=== PATIENT | male | born 1990 | race Caucasian/White ===

== ENCOUNTER 2017-03-03 16:13 | Emergency (ER) | payer OTHER ==
[~2017-03-03 16:13] MED LIST: Iopamidol 370 76% 100 ML VIAL ONE; Sodium Chloride 0.9% 1,000 ML BAG ONE
[2017-03-03] MEDS ORDERED: Ketorolac Tromethamine 30 MG/ML VIAL ONE (16:30)
[2017-03-03] MEDS ORDERED: Ondansetron HCl/PF 4 MG/2 ML Vial ONE (16:30)
[2017-03-03] MEDS ORDERED: Morphine Sulfate 2 MG/ML SYRINGE ONE ×2 (17:12→19:45)
--- NOTE | 2017-03-03 17:22 | RAD ---
AP VIEW CHEST 03/03/17 HISTORY: Abdominal pain. AP view chest is obtained. The lungs are well aerated. No evidence of active intrathoracic disease seen. No evidence of effusio ns, pneumonia or pneumothorax seen. IMPRESSION: Unremarkable AP view chest. POS: [facility]
[2017-03-03 17:32] LABS: White Blood Cell (WBC) Count 22.7 thou/uL (4.8-10.8)
[2017-03-03 17:33] LABS: Mean Corpuscular Hemoglobin 30.4 pg (27.0-31.0); Mean Corpuscular Volume 91.5 fL (80.0-94.0); Red Blood Cell (RBC) Count 6.62 mill/uL (4.70-6.10)
[2017-03-03 17:34] LABS: #Basophils 0.2 thou/uL (0.0-0.2); #Eosinphils 0.1 thou/uL (0.0-0.7); #Lymphocytes 1.6 thou/uL (1.20-3.40); #Monocytes 1.5 thou/uL (0.11-0.59); #Neutrophils 19.4 thou/uL (1.40-6.50); %Basophils 0.7 % (0.0-1.0); %Eosinophils 0.4 % (0.0-10.0); %Monocytes 6.7 % (0.0-10.0); %Neutrophils 85.2 % (42.0-75.0); ALT (SGPT) 56 U/L (8-55); AST (SGOT) 30 U/L (5-34); Albumin 4.6 g/dL (3.5-5.0); Alkaline Phosphatase 85 U/L (40-150); Anion Gap 14 mmol/L (10-20); BUN (Urea Nitrogen) 8 mg/dL (8.9-20.6); Bilirubin, Total 0.7 mg/dL (0.2-1.2); CK (CPK) 108 U/L (30-200); Calc. Creatinine Clearance 0 mL/min (70-130); Calcium 9.9 mg/dL (7.8-10.44); Carbon Dioxide 24 mmol/L (22-29); Chloride 105 mmol/L (98-107); Estimated GFR-MDRD 75; Globulin 3.3 g/dL (2.4-3.5); Glucose 95 mg/dL (70-105); Lipase 33 U/L (8-78); Mean Corpuscular HGB CONC 33.2 g/dL (32.0-36.0); Mean Platelet Volume 10.5 fL (7.4-10.4); Platelet Count 355 thou/uL (130-400); Potassium 4.7 mmol/L (3.5-5.1); Protein, Total 7.9 g/dL (6.0-8.3); Sodium 138 mmol/L (136-145)
[2017-03-03 17:37] LABS: Hemoglobin 20.1 g/dL (14.0-18.0)
--- NOTE | 2017-03-03 19:13 | CT ---
CONTRAST ENHANCED CT IMAGES ABDOMEN AND PELVIS 03/03/17 HISTORY: Diffuse abdominal pain, worse in the right lower region. Contrast enhanced CT images of the abdomen and pelvis obtained after administration of IV and oral c ontrast. The lung bases are unremarkable. No evidence of free intraperitoneal air seen. The liver, spleen, ga llbladder, pancreas, adrenal glands and kidneys are unremarkable. There is a focal area of small bow el seen on image #43 with a bullseye appearance. This is also seen on the coronal images. This may r epresent a focal area of small bowel intussusception. Contrast in the bowel is seen proximal to this area. The small bowel loops are also mildly dilated proximal to this. More distally, the small pa l loops are of normal caliber. There does appear to be some mesenteric lymph node enlargement also s een. The colon is not significantly distended or thickened. IMPRESSION: 1. Mesenteric lymph node enlargement concerning for mesenteric adenitis. 2. There is a focal area of small bowel which may have an intussusception seen on image #43 axi ally and images 46, 47 and 48 on the coronal reconstructed images. POS: [facility]
[2017-03-03] MEDS ORDERED: diphenhydrAMINE HCl 25 MG CAP ONE (19:45)
[2017-03-03] MEDS ORDERED: Promethazine HCl 25 MG/ML VIAL ONE (19:54)
== END 2017-03-03 20:20 | disposition short-term general hospital (02) ==
LOC: MADERS 16:13
DX: I88.0 Nonspecific mesenteric lymphadenitis (principal); K56.1 Intussusception; F41.9 Anxiety disorder, unspecified; Z87.891 Personal history of nicotine dependence; Z79.899 Other long term (current) drug therapy
CPT/HCPCS: 36415; 71010; 74177; 80053; 82150; 82550; 83690; 85025; 96361; 96374; 96375; 96376; J1885; J2270; J2405; J2550; J7050

== ENCOUNTER 2018-01-18 13:30 | Emergency (ER) | payer OTHER ==
[2018-01-18 14:09] LABS: #Basophils 0.2 thou/uL (0.0-0.2); #Eosinphils 0.1 thou/uL (0.0-0.7); #Lymphocytes 1.4 thou/uL (1.20-3.40); #Monocytes 1.2 thou/uL (0.11-0.59); #Neutrophils 8.1 thou/uL (1.40-6.50); %Basophils 1.7 % (0.0-1.0); %Eosinophils 1.3 % (0.0-10.0); %Lymphocytes 12.5 % (21.0-51.0); %Monocytes 10.9 % (0.0-10.0); %Neutrophils 73.6 % (42.0-75.0); Hemoglobin 18.1 g/dL (14.0-18.0); Mean Corpuscular HGB CONC 34.1 g/dL (32.0-36.0); Mean Corpuscular Hemoglobin 30.6 pg (27.0-31.0); Mean Corpuscular Volume 89.6 fl (80.0-94.0); Mean Platelet Volume 9.8 fL (7.4-10.4); Platelet Count 262 thou/uL (130-400); RBC Distribution Width 12.3 % (11.5-14.5); Red Blood Cell (RBC) Count 5.91 mill/uL (4.70-6.10)
[2018-01-18] MEDS ORDERED: MORPHINE 10 MG/ML SYRINGE ONE (14:09)
[2018-01-18] MEDS ORDERED: Ondansetron HCl/PF 4 MG/2 ML Vial ONE (14:09)
[2018-01-18 14:23] LABS: ALT (SGPT) 85 U/L (8-55); AST (SGOT) 24 U/L (5-34); Alkaline Phosphatase 77 U/L (40-150); Anion Gap 14 mmol/L (10-20); BUN (Urea Nitrogen) 8 mg/dL (8.9-20.6); Bilirubin, Total 0.9 mg/dL (0.2-1.2); Calc. Creatinine Clearance 0 mL/min (70-130); Calcium 9.5 mg/dL (7.8-10.44); Carbon Dioxide 20 mmol/L (22-29); Chloride 108 mmol/L (98-107); Estimated GFR-MDRD 78; Globulin 3.1 g/dL (2.4-3.5); Glucose 103 mg/dL (70-105); Lipase 41 U/L (8-78); Potassium 4.4 mmol/L (3.5-5.1); Protein, Total 7.1 g/dL (6.0-8.3); Sodium 138 mmol/L (136-145)
[2018-01-18 14:39] LABS: Bilirubin Negative (Negative); Blood, Urine Trace (Negative); Clarity Clear (Clear); Glucose, Urine (Dipstick) Negative (Negative); Leukocyte Negative (Negative); Nitrite Negative (Negative); Protein, Urine (Dipstick) 100 mg/dL (Neg-Trace)
[2018-01-18 14:43] LABS: Bacteria/HPF None Seen HPF (None Seen); RBC/HPF None Seen HPF (0-3); Squamous Epithelial 0-3 HPF (0-3); WBC/HPF None Seen HPF (0-3)
[2018-01-18] MEDS ORDERED: Morphine 10 MG/ML VIAL ONE (15:03)
[2018-01-18] MEDS ORDERED: Lorazepam 2 MG/ML VIAL ONE (15:54)
--- NOTE | 2018-01-18 16:14 | CT ---
CT ABDOMEN AND PELVIS WITH IV AND ORAL CONTRAST: Date: 01/18/18 HISTORY: Abdominal pain. Intussusception. COMPARISON: 03/03/17. FINDINGS: Lung bases are clear. The liver, spleen, kidneys, adrenal glands, and pancreas have a normal CT appea andrea. Urinary bladder is unremarkable. Appendix is not inflamed. Reactive appearing lymph nodes in t he right lower quadrant are similar in appearance to the prior study. In region of transient small bowel intussusception in the left mid abdomen on the previous study, the bowel has a normal appearance. IMPRESSION: No significant abnormalities are demonstrated. POS: [facility]
== END 2018-01-18 16:50 | disposition home or self-care (01) ==
LOC: MADERS 13:30
DX: E87.2 Acidosis (principal); R94.5 Abnormal results of liver function studies; I88.0 Nonspecific mesenteric lymphadenitis; R80.9 Proteinuria, unspecified
CPT/HCPCS: 74177; 80053; 81003; 81015; 83605; 83690; 85025; 96361; 96374; 96375; 96376; J2060; J2270; J2405; J7050

== ENCOUNTER 2018-08-15 12:16 | Emergency (ER) | payer OTHER ==
[2018-08-15] MEDS ORDERED: Ondansetron PF 4 MG/2 ML Vial ONE (13:05)
[2018-08-15] MEDS ORDERED: Morphine 4 MG/ML VIAL ONE (13:05)
[2018-08-15 13:08] LABS: #Basophils 0.2 thou/uL (0.0-0.2); #Eosinphils 0.2 thou/uL (0.0-0.7); #Lymphocytes 1.9 thou/uL (1.20-3.40); #Monocytes 1.1 thou/uL (0.11-0.59); #Neutrophils 11.1 thou/uL (1.40-6.50); %Basophils 1.3 % (0.0-1.0); %Eosinophils 1.2 % (0.0-10.0); %Lymphocytes 12.9 % (21.0-51.0); %Monocytes 7.5 % (0.0-10.0); %Neutrophils 77.1 % (42.0-75.0); Hemoglobin 17.5 g/dL (14.0-18.0); Mean Corpuscular HGB CONC 31.9 g/dL (32.0-36.0); Mean Platelet Volume 9.5 fL (7.4-10.4); Platelet Count 323 thou/uL (130-400); RBC Distribution Width 12.9 % (11.5-14.5); Red Blood Cell (RBC) Count 5.85 mill/uL (4.70-6.10); White Blood Cell (WBC) Count 14.3 thou/uL (4.8-10.8)
[2018-08-15 13:27] LABS: ALT (SGPT) 46 U/L (8-55); AST (SGOT) 30 U/L (5-34); Albumin 4.1 g/dL (3.5-5.0); Alkaline Phosphatase 60 U/L (40-150); Anion Gap 13 mmol/L (10-20); BUN (Urea Nitrogen) 9 mg/dL (8.9-20.6); Bilirubin, Total 0.8 mg/dL (0.2-1.2); Calc. Creatinine Clearance 0 mL/min (70-130); Calcium 9.6 mg/dL (7.8-10.44); Carbon Dioxide 23 mmol/L (22-29); Chloride 104 mmol/L (98-107); Estimated GFR-MDRD 90; Globulin 2.9 g/dL (2.4-3.5); Glucose 91 mg/dL (70-105); Lipase 179 U/L (8-78); Potassium 4.8 mmol/L (3.5-5.1); Sodium 135 mmol/L (136-145)
[2018-08-15 13:51] LABS: Bilirubin Negative (Negative); Blood, Urine Trace (Negative); Glucose, Urine (Dipstick) Negative (Negative); Leukocyte Negative (Negative); Nitrite Negative (Negative); Protein, Urine (Dipstick) 100 mg/dL (Neg-Trace); Urobilinogen 0.2 mg/dL (0.2-1.0)
[2018-08-15 14:01] LABS: Clarity Hazy (Clear)
[2018-08-15 14:02] LABS: Bacteria/HPF Rare-Few HPF (None Seen); Squamous Epithelial 0-3 HPF (0-3); WBC/HPF 0-3 HPF (0-3)
--- NOTE | 2018-08-15 14:10 | CT ---
CT ABDOMEN AND PELVIS WITHOUT CONTRAST: Date: 08/15/18 Multiple axial tomograms obtained through the abdomen and pelvis without IV enhancement. INDICATION: Left flank pain. FINDINGS: Lung bases clear. Liver, spleen, and pancreas are unremarkable, given limitations of a noncontrast study. Adrenal glands appear normal. Kidneys are unremarkable. No evidence of hydronephrosis. There is no evidence of urinary tract calcul us or obstruction. The urinary bladder is mildly distended and appears unremarkable. Small bowel loops are normal caliber. The appendix appears normal. Aorta is normal caliber. Nonspecif ic periaortic lymph nodes. There are also numerous nonspecific mesenteric lymph nodes, several of whi ch in the right abdomen are mildly prominent. At least one mesenteric lymph node on the right measure s up to 1.5 cm. Numerous other mesenteric lymph nodes measure up to 1.0 cm. IMPRESSION: 1. No evidence of urinary tract calculus or obstruction. 2. Nonspecific retroperitoneal and mesenteric lymph nodes. Mesenteric adenitis is a consideration. POS: [facility]
[2018-08-15] MEDS ORDERED: Piperacillin/Tazobactam 4.5 GM VIAL ONE (14:15)
--- NOTE | 2018-08-15 14:26 | ULT ---
RIGHT UPPER QUADRANT ULTRASOUND: Date: 08/15/18 HISTORY: Pancreatitis, right upper quadrant pain. FINDINGS: The liver demonstrates homogeneous echotexture without focal mass or intrahepatic ductal dilatation. The pancreas is not visualized due to overlying bowel gas. No gallstones are seen. There is mild thic kening of the wall of the gallbladder measuring about 4.0 mm. The common duct measures 4.0 mm in diam eter. Right kidney is normal. No free fluid is seen in Morison's pouch. IMPRESSION: 1. No evidence of gallstones. 2. Nonspecific mild gallbladder wall thickening. POS: [facility]
[2018-08-15] MEDS ORDERED: Morphine 10 MG/ML VIAL ONE (15:24)
[2018-08-15] MEDS ORDERED: Sodium Chloride 0.9% 1,000 ML BAG ONE (20:29)
[2018-08-15] MEDS ORDERED: Sodium Chloride 0.9% 100 ML BAG ONE (20:29)
== END 2018-08-15 15:58 | disposition short-term general hospital (02) ==
LOC: MADERS 12:16
DX: K85.90 Acute pancreatitis without necrosis or infection, unspecified (principal); K82.9 Disease of gallbladder, unspecified; I10 Essential (primary) hypertension; F41.9 Anxiety disorder, unspecified; F98.8 Other specified behavioral and emotional disorders with onset usually occurring in childhood and adolescence; Z87.891 Personal history of nicotine dependence; Z79.899 Other long term (current) drug therapy
CPT/HCPCS: 36415; 74176; 76705; 80053; 81003; 81015; 83605; 83690; 85025; 87040; 96361; 96365; 96375; 96376; J2270; J2405; J2543; J7050

== ENCOUNTER 2019-07-14 07:27 | Emergency (ER) | payer OTHER ==
[2019-07-14] MEDS ORDERED: EPINEPHrine 1 MG/ML AMP ONE (07:45)
[2019-07-14] MEDS ORDERED: Famotidine In NaCl 20 mg/50 ml Premix Bag ONE (07:45)
[2019-07-14] MEDS ORDERED: methylPREDNISolone Sod Succ/PF 125 MG/2 ML VIAL ONE (07:45)
[2019-07-14] MEDS ORDERED: diphenhydrAMINE 50 MG/ML VIAL ONE (08:02)
== END 2019-07-14 12:33 | disposition home or self-care (01) ==
LOC: MADERS 07:27
DX: T78.2XXA Anaphylactic shock, unspecified, initial encounter (principal); I10 Essential (primary) hypertension; F90.9 Attention-deficit hyperactivity disorder, unspecified type; F41.9 Anxiety disorder, unspecified; Z79.899 Other long term (current) drug therapy
CPT/HCPCS: 94760; 96372; 96374; 96375; J0171; J1200; J2930

== ENCOUNTER 2019-07-23 16:43 | Emergency (ER) | payer OTHER ==
[2019-07-23] MEDS ORDERED: Adacel (T-DAP) 0.5 ML SYRINGE ONE (17:17)
[2019-07-23] MEDS ORDERED: HYDROcodone/Acetaminophen 10/325 mg Tablet ONE (17:22)
[2019-07-23] MEDS ORDERED: Ibuprofen 800 MG TAB ONE (17:22)
[2019-07-23] MEDS ORDERED: Cephalexin 500 MG CAP ONE (17:22)
[2019-07-23] MEDS ORDERED: Bacitracin 1 PK ONE (17:42)
== END 2019-07-23 18:07 | disposition home or self-care (01) ==
LOC: MADERS 16:43
DX: S21.151A Open bite of right front wall of thorax without penetration into thoracic cavity, initial encounter (principal); S00.412A Abrasion of left ear, initial encounter; S20.311A Abrasion of right front wall of thorax, initial encounter; F90.9 Attention-deficit hyperactivity disorder, unspecified type; I10 Essential (primary) hypertension; F41.9 Anxiety disorder, unspecified; Z79.899 Other long term (current) drug therapy; Z23 Encounter for immunization; W54.0XXA Bitten by dog, initial encounter
CPT/HCPCS: 90471; 90715

== ENCOUNTER 2022-03-07 14:49 | Emergency (ER) | payer BC, OTHER ==
[2022-03-07 16:12] LABS: #Basophils 0.2 thou/uL (0.0-0.2); #Eosinphils 0.1 thou/uL (0.0-0.7); #Lymphocytes 1.6 thou/uL (1.20-3.40); #Monocytes 0.6 thou/uL (0.11-0.59); #Neutrophils 6.8 thou/uL (1.40-6.50); %Basophils 1.8 % (0.0-1.0); %Eosinophils 0.7 % (0.0-10.0); %Lymphocytes 17.7 % (21.0-51.0); %Monocytes 6.7 % (0.0-10.0); %Neutrophils 73.1 % (42.0-75.0); Hemoglobin 15.8 g/dL (14.0-18.0); Mean Corpuscular HGB CONC 31.7 g/dL (32.0-36.0); Mean Corpuscular Hemoglobin 28.4 pg (27.0-31.0); Mean Corpuscular Volume 89.7 fL (78.0-98.0); Mean Platelet Volume 12.1 fL (7.4-10.4); Platelet Count 250 thou/uL (130-400); Red Blood Cell (RBC) Count 5.57 mill/uL (4.70-6.10); White Blood Cell (WBC) Count 9.2 thou/uL (4.8-10.8)
[2022-03-07 16:28] LABS: ALT (SGPT) 42 U/L (8-55); AST (SGOT) 31 U/L (5-34); Alkaline Phosphatase 74 U/L (40-110); Anion Gap 14 mmol/L (10-20); BUN (Urea Nitrogen) 12 mg/dL (8.9-20.6); Bilirubin, Total 0.4 mg/dL (0.2-1.2); CK (CPK) 375 U/L (30-200); Calc. Creatinine Clearance 0 mL/min (70-130); Carbon Dioxide 25 mmol/L (22-29); Chloride 105 mmol/L (98-107); Globulin 3.2 g/dL (2.4-3.5); Glucose 96 mg/dL (70-105); Potassium 4.1 mmol/L (3.5-5.1); Protein, Total 7.2 g/dL (6.0-8.3); Sodium 140 mmol/L (136-145)
[2022-03-07 16:35] LABS: Giant Platelets SLIGHT; Large Platelets SLIGHT; Platelet Morphology Comment Appears Adequate
[2022-03-07 17:06] LABS: Bilirubin Negative (Negative); Blood, Urine Trace (Negative); Clarity Clear (Clear); Glucose, Urine (Dipstick) Negative (Negative); Ketone, Urine Negative (Negative); Leukocyte Negative (Negative); Nitrite Negative (Negative); Protein, Urine (Dipstick) 100 mg/dL (Neg-Trace); Urobilinogen 0.2 mg/dL (Less than 2)
[2022-03-07 17:08] LABS: Bacteria/HPF Rare-Few HPF (None Seen); RBC/HPF 0-3 HPF (0-3); Squamous Epithelial 0-3 HPF (0-3); WBC/HPF 0-3 HPF (0-3)
[2022-03-07] MEDS ORDERED: Acetaminophen 500 MG TAB ONE (17:21)
[2022-03-07] MEDS ORDERED: traMADol HCl 50 MG TAB ONE (17:21)
[2022-03-07 23:15] LABS: HIV (1/2) Antibody/Antigen Non-Reactive (NonReactive); HIV 1/2 INDEX 0.16 S/CO (<1.00); Hep C IgG Ab Non-Reactive (NonReactive); Hep C Index 0.07 S/CO (0-0.79)
== END 2022-03-07 19:01 | disposition home or self-care (01) ==
LOC: MADERS 14:49
DX: M53.3 Sacrococcygeal disorders, not elsewhere classified (principal); G89.11 Acute pain due to trauma; I10 Essential (primary) hypertension; Z79.899 Other long term (current) drug therapy
CPT/HCPCS: 36415; 72131; 80053; 81001; 82550; 85025; 86803; 87389; 93005